=== PATIENT | female | born 1965 | race Caucasian/White ===

== ENCOUNTER 2021-05-10 12:44 | Outpatient (CLI) | payer OTHER, SELFPAY ==
--- NOTE | ~2021-05-10 | MMUS_ITS ---
EXAMINATION: MM diagnostic marc BI w froy, US breast RT limited HISTORY: Palpable lump under right arm. TECHNIQUE: Additional 3-D tomosynthesis images of the breasts were performed and synthetic 2-D images were generated. CAD analysis was submitted and interpreted. High resolution Limited right breast ult rasound was performed. COMPARISON: Comparison to multiple prior studies sequentially, with oldest reviewed study dated 01/10. BREAST PARENCHYMAL COMPOSITION: The breasts are heterogenously dense, which may obscure small masses. FINDINGS: MAMMOGRAPHIC FINDINGS: There are no suspicious masses, calcifications or architectural distortion in the right breast to sug gest malignancy. There are punctate calcifications in the outer aspect of the left breast posteriorly on CC view which are likely benign. Six-month follow-up diagnostic left mammogram is recommended. ULTRASOUND: Limited right breast ultrasound: In the area of palpable concern there is an irregular shaped hypoech oic mass with posterior enhancement measuring 1.7 x 1.0 cm. No other masses are identified. IMPRESSION: 1. Irregular shaped hypoechoic 1.7 cm right breast mass in the area of palpable concern. Ultrasound g uided right breast biopsy recommended. 2. Punctate grouped calcifications posterior lateral aspect of the left breast on CC view, likely yancy ign. Six-month follow-up diagnostic left mammogram recommended. BI-RADS category 4, suspicious findings. Reviewed, dictated and finalized at location A. IMPRESSION: 1. Irregular shaped hypoechoic 1.7 cm right breast mass in the area of palpable concern. Ultrasound guided right breast biopsy recommended. 2. Punctate grouped calcifications posterior lateral aspect of the left breast on CC view, likely benign. Six-month follow-up diagnostic left mammogram recomm ended. BI-RADS category 4, suspicious findings.
== END 2021-05-10 12:45 | disposition home or self-care (01) ==
PROVIDERS: PCP Family Medicine; Referring Provider Obstetrics & Gynecology; Visit Provider Family Medicine
DX: N63.31 Unspecified lump in axillary tail of the right breast (principal)
CPT/HCPCS: 76642; 77062; 77066; G0279

== ENCOUNTER → 2021-11-16 14:30 | Outpatient (CLI) | payer OTHER, SELFPAY ==
--- NOTE | ~2021-11-16 | XR_ITS ---
EXAMINATION: XR chest 2V DATE: 11/16/2021 14:47 INDICATION: Chronic cough. TECHNIQUE: Frontal and lateral views of the chest were obtained. COMPARISON: None. FINDINGS: The chest demonstrates clear lungs without pneumonia, pleural effusion, or pneumothorax. Th e heart size is normal. IMPRESSION: 1. No acute cardiopulmonary disease. Reviewed, dictated and finalized at location B.
== END ==
PROVIDERS: PCP Family Medicine; Visit Provider Family Medicine
DX: R05.3 Chronic cough (principal)
CPT/HCPCS: 71046

== ENCOUNTER 2023-07-12 03:35 | Day surgery (SDC) | payer BC, SELFPAY ==
[2023-05-21 14:48] VITALS: BMI 30.5
--- NOTE | 2023-06-27 09:47 | PC.NURSE ---
Pt was rescheduled from 05/31/23 to 07/12/23. PAT call was completed on 05/21/23. Pt states no changes in health history or medications since then. Aware of new date and time, 07/12/23 at 0700/0830. No questions. Verbalizes understanding.
--- NOTE | 2023-07-10 12:06 | SUR.PREOP ---
Patient called regarding upcoming procedure. Reviewed preop instructions, appointment times, and procedure prep.
[2023-07-12 07:30] VITALS: BP 122/81; PULSE 88; RESP 18; TEMP 35.8; O2SAT 99; BMI 30.4
[2023-07-12] MEDS: LACTATED RINGERS 1,000 ML 150 ML IV CONT (07:48)
--- NOTE | 2023-07-12 07:50 | WPDANESEPPF ---
Anes - Initial Pre Proc Eval Procedure: Operation Date: 07/12/23 08:30 Proposed Procedures p Colonoscopy - Leonard Osorio MD Date/Time: 07/12/23 07:50 Surgeon: Leonard Osorio MD Pre Op Diagnosis: other fecal abnormalities Patient Data Age: 57 Gender: F Height: 1.68 m Weight: 85.5 kg Last Vital Signs Temp 35.8 C L 07/12/23 07:30 Pulse 88 07/12/23 07:30 Resp 18 07/12/23 07:30 BP 122/81 07/12/23 07:30 Pulse Ox 99 07/12/23 07:30 O2 Del Method Room Air 07/12/23 07:30 Allergies Allergy/AdvReac Type Severity Reaction Status Date / Time codeine Allergy Unknown Nausea Verified 07/12/23 07:37 Home Medications Medication Instructions Recorded Confirmed Type levocetirizine 5 mg tablet (Xyzal) 5 mg PO DAILY 10/17/22 07/12/23 History venlafaxine 37.5 mg 37.5 mg PO DAILY #90 caps 11/19/22 07/12/23 Rx capsule,extended release 24 hr (Effexor XR) ergocalciferol (vitamin D2) 1,250 1,250 mcg PO WEEKLY #12 caps 04/18/23 07/12/23 Rx mcg (50,000 unit) capsule amoxicillin 875 mg tablet 875 mg PO Q12H #20 tabs 07/08/23 07/12/23 Rx Patient hx anesthesia problems: none Family hx anesthesia problems: none Results Review: All pre-operative results and documents have been reviewed as part of the pre-operative evaluation. [facility] Past Medical History Medical History Acute non-recurrent maxillary sinusitis Altered bowel habits BMI 33.0-33.9,adult Colon cancer screening COVID (10/13/21) Depression Elevated fasting glucose Hematuria Hyperlipidemia Mass of right breast (~05/10/21) 1.7 x 1.0 cm irregular hypoechoic mass with enhancement on ultrasound 05/10/2021 with need for biopsy Menopausal symptoms Obesity (BMI 35.0-39.9 without comorbidity) Pharyngitis Post-COVID chronic cough (~03/18/22) chest x-ray 11/16/2021 normal. Vitamin D deficiency Family History Family History Mother Hypertension Family history of rheumatoid arthritis Patient's mother is , Onset Age: 80 Father Patient's father is , Onset Age: 89 Family history of malignant neoplasm Grandparent Acute myocardial infarction, Onset Age: 79 Cerebrovascular accident, Onset Age: 79 Family history of malignant neoplasm, Onset Age: 70 Other Family history of malignant neoplasm of breast Social History Social History Smoking status: Never smoker Alcohol intake: current Alcohol use details: Occasionally Substance use: never Substance use type: does not use Lack of Transportation: No Lack of Food: Never True Current Housing: I Have Housing Concerned About Future Housing: No Difficulty Paying Gas/Electric Bills: No Difficulty Paying for Meds: No Currently Unemployed: No Education: Master's Degree or Higher Difficulty w/ Childcare or Family Care: No Living arrangements: with family Anes - Eval Final PreProcedure Day of Procedure 07/12/23 07:50 Patient weight: obese Heart: regular rate and rhythm Lungs: clear to auscultation Airway: Mallampati scale class II Neurological: alert and oriented Last oral intake: >/= 8 hours ASA classification: II Emergent: no Anesthetic plan: proceed Anesthesia type and monitoring: general GIVS and standard monitoring Results Review: All pre-operative results and documents have been reviewed as part of the pre-operative evaluation. Informed Consent: The patient's anesthetic plan and its attendant risks and benefits were discussed with the patient/family/POA. Questions were solicited and answers provided to the satisfaction of the patient/family/POA.
--- NOTE | 2023-07-12 08:17 | PM.HPGS ---
History of Present Illness History of Present Illness Consent: Risks, benefits, and alternatives have been discussed and questions answered. Patient agrees to proceed with procedure. Chief complaint: other fecal abnormalities Narrative: Nicolasa Worthington is a 57 year old female here for first colonoscopy, had + cologuard Review of Systems Constitutional: Constitutional: Denies headache(s) and Denies weakness Eyes: Eyes: Denies blurry vision ENT: Reports Normal hearing present, Denies headache(s) and Denies neck pain Cardiovascular: Cardiovascular: Denies chest pain and Denies dyspnea Respiratory: Respiratory: Denies dyspnea Gastrointestinal: Gastrointestinal: Reports no additional gastrointestinal complaints Genitourinary: Genitourinary: Denies dysuria Musculoskeletal: Musculoskeletal: Denies neck pain Integumentary/Breasts: Skin/Breast: Denies dry skin Neurologic: Reports Normal hearing present, Denies headache(s) and Denies weakness Psychiatric: Psychiatric: Denies anxiety Endocrine: Endocrine: Denies change in body appearance Hematologic/Lymphatic: Hematologic/Lymphatic: Denies easy bleeding Allergic/Immunologic: Allergic/Immunologic: Denies urticaria PMFSH Past Medical History Medical History (Updated 07/12/23 @ 08:17 by Leonard Osorio MD) Acute non-recurrent maxillary sinusitis Altered bowel habits BMI 33.0-33.9,adult Colon cancer screening COVID (10/13/21) Depression Elevated fasting glucose Hematuria Hyperlipidemia Mass of right breast (~05/10/21) 1.7 x 1.0 cm irregular hypoechoic mass with enhancement on ultrasound 05/10/2021 with need for biopsy Menopausal symptoms Obesity (BMI 35.0-39.9 without comorbidity) Pharyngitis Positive colorectal cancer screening using Cologuard test Post-COVID chronic cough (~10/13/21) chest x-ray 11/16/2021 normal. Vitamin D deficiency Family History Family History Mother Hypertension Family history of rheumatoid arthritis Patient's mother is , Onset Age: 80 Father Patient's father is , Onset Age: 89 Family history of malignant neoplasm Grandparent Acute myocardial infarction, Onset Age: 79 Cerebrovascular accident, Onset Age: 79 Family history of malignant neoplasm, Onset Age: 70 Other Family history of malignant neoplasm of breast Social History Social History Smoking status: Never smoker Alcohol intake: current Alcohol use details: Occasionally Substance use: never Substance use type: does not use Lack of Transportation: No Lack of Food: Never True Current Housing: I Have Housing Concerned About Future Housing: No Difficulty Paying Gas/Electric Bills: No Difficulty Paying for Meds: No Currently Unemployed: No Education: Master's Degree or Higher Difficulty w/ Childcare or Family Care: No Living arrangements: with family Meds Home Medications and Allergies Home Medications Medication Instructions Recorded Confirmed Type levocetirizine 5 mg tablet (Xyzal) 5 mg PO DAILY 10/17/22 07/12/23 History venlafaxine 37.5 mg 37.5 mg PO DAILY #90 caps 11/19/22 07/12/23 Rx capsule,extended release 24 hr (Effexor XR) ergocalciferol (vitamin D2) 1,250 1,250 mcg PO WEEKLY #12 caps 04/18/23 07/12/23 Rx mcg (50,000 unit) capsule amoxicillin 875 mg tablet 875 mg PO Q12H #20 tabs 07/08/23 07/12/23 Rx Allergies Allergy/AdvReac Type Severity Reaction Status Date / Time codeine Allergy Unknown Nausea Verified 07/12/23 07:37 Vital Signs Vital Signs - 24 hr 07/12/23 07:30 Temperature 96.5 F L Pulse Rate 88 Respiratory Rate 18 Blood Pressure 122/81 Pulse Oximetry 99 Oxygen Delivery Room Air Exam Const: General: comfortable and no acute distress HENMT: Face/Nose/Sinus: Normal nares present Eyes: General: appearance normal, [place]
[2023-07-12 08:37] VITALS: BP 99/69; PULSE 83; RESP 24; O2SAT 95
[2023-07-12 08:47] VITALS: BP 104/68; PULSE 76; RESP 12; O2SAT 95
[2023-07-12 08:57] VITALS: BP 114/74; PULSE 73; RESP 24; O2SAT 99
== END 2023-07-12 09:03 | disposition home or self-care (01) ==
PROVIDERS: PCP Nurse Practitioner Family; Visit Provider Internal Medicine Gastroenterology
PROC: 0DJD8ZZ Inspection of Lower Intestinal Tract, Via Natural or Artificial Opening Endoscopic (ICD-10-PCS; CPT 45378; principal; 2023-07-12 08:30)
DX: K57.30 Diverticulosis of large intestine without perforation or abscess without bleeding (principal); D12.5 Benign neoplasm of sigmoid colon; K64.8 Other hemorrhoids; F32.A Depression, unspecified; E55.9 Vitamin D deficiency, unspecified; E66.9 Obesity, unspecified; Z68.30 Body mass index [BMI] 30.0-30.9, adult
CPT/HCPCS: 45385; 88305; J2001; J2704; J7120

== ENCOUNTER 2023-08-22 13:24 | Emergency (ER) | payer BC, SELFPAY ==
[2023-08-22 13:39] VITALS: BP 114/84; PULSE 64; RESP 16; TEMP 36.2; O2SAT 98
--- NOTE | 2023-08-22 13:44 | PC.NURSE ---
[id number] Patient left after triage as she reported she had an order for xray and needed only to be seen in imaging department. Not seen by provider.
== END 2023-08-22 13:44 | disposition left against medical advice (07) ==
LOC: EXPGOSH 13:26
PROVIDERS: Emergency Provider Nurse Practitioner; PCP Nurse Practitioner Family
DX: M79.645 Pain in left finger(s) (principal)
CPT/HCPCS: 99199

== ENCOUNTER → 2023-08-22 13:42 | Outpatient (CLI) | payer BC, SELFPAY ==
--- NOTE | ~2023-08-22 | XR_ITS ---
EXAMINATION: XR hand LT min 3V DATE: 08/22/2023 14:10 INDICATION: Left hand pain. TECHNIQUE: 3 views of left hand were obtained. COMPARISON: None. FINDINGS: Bone alignment is normal. No fracture. There is mild osteoarthritis of first carpometacarpa l joint and most of the metacarpophalangeal joints and interphalangeal joints. IMPRESSION: 1. Mild polyarticular osteoarthritis. Reviewed, dictated and finalized at location E. CAL OFFICE MANAGER
--- NOTE | ~2023-08-22 | XR_ITS ---
EXAMINATION: XR wrist LT min 3V DATE: 08/22/2023 14:10 INDICATION: Left wrist pain. TECHNIQUE: 4 views of left wrist were obtained. COMPARISON: None. FINDINGS: There is volar tilt of lunate, consistent with volar intercalated segmental instability. No fracture. There is mild osteoarthritis of first carpometacarpal joint and triscaphe joint. IMPRESSION: 1. Mild polyarticular osteoarthritis. 2. Volar intercalated segmental instability (VISI). Reviewed, dictated and finalized at location E. ER HARVESTER OPERATOR
== END ==
PROVIDERS: PCP Family Medicine; Visit Provider Family Medicine
DX: M19.032 Primary osteoarthritis, left wrist (principal); M19.042 Primary osteoarthritis, left hand; M25.332 Other instability, left wrist
CPT/HCPCS: 73110; 73130

== ENCOUNTER 2024-07-20 16:33 | Emergency (ER) | payer BC, SELFPAY ==
[2024-07-20 16:42] VITALS: BP 129/88; PULSE 72; RESP 16; TEMP 36; O2SAT 98
--- NOTE | 2024-07-20 16:44 | ED.HEATRA ---
HPI - Head Injury General Chief complaint: Head Injury Stated complaint: HEAD INJURY Time Seen by Provider: 07/20/24 16:48 Mode of arrival: ambulatory Limitations: no limitations History of Present Illness HPI Narrative: 58-year-old female presents concern for head injury. Reports about an hour ago she tripped in her driveway and fell and hit her head on the concrete. She reports headache, large raised area on her forehead. She denies vomiting, vision changes. She is not on blood thinners. Her reports she seems unsteady on her feet Complaint: head injury Related Data Allergies Allergy/AdvReac Type Severity Reaction Status Date / Time codeine Allergy Unknown Nausea Verified 10/21/23 08:06 Review of Systems Review of Systems: CONSTITUTIONAL: Denies chills, sweats, or fever. EYES: Denies visual changes CARDIOVASCULAR: Denies chest pain GASTROINTESTINAL: Denies nausea, vomiting SKIN: Reports raised bruised area on her forehead MUSCULOSKELETAL: Denies musculoskeletal pain NEUROLOGIC: Denies numbness, weakness, or headache. All systems reviewed & are unremarkable except as noted in HPI and below [facility] Past Medical History Medical History (Updated 07/20/24 @ 17:05 by Dee Christensen NP) Chronic pain of left wrist (~05/2023) Chronic pain of left hand (~05/2023) Positive colorectal cancer screening using Cologuard test Acute non-recurrent maxillary sinusitis Colon cancer screening Altered bowel habits BMI 33.0-33.9,adult Vitamin D deficiency Menopausal symptoms COVID (10/13/21) Post-COVID chronic cough (~10/13/21) chest x-ray 11/16/2021 normal. Pharyngitis Hematuria Hyperlipidemia Elevated fasting glucose Depression Mass of right breast (~05/10/21) 1.7 x 1.0 cm irregular hypoechoic mass with enhancement on ultrasound 05/10/2021 with need for biopsy Obesity (BMI 35.0-39.9 without comorbidity) Family History Family History Mother Hypertension Family history of rheumatoid arthritis Patient's mother is , Onset Age: 80 Father Patient's father is , Onset Age: 89 Family history of malignant neoplasm Grandparent Acute myocardial infarction, Onset Age: 79 Cerebrovascular accident, Onset Age: 79 Family history of malignant neoplasm, Onset Age: 70 Other Family history of malignant neoplasm of breast Social History Social History Smoking status: Never smoker Alcohol intake: current Alcohol use details: Occasionally Substance use: never Substance use type: does not use Lack of Transportation: No Lack of Food: Never True Current Housing: I Have Housing Concerned About Future Housing: No Difficulty Paying Gas/Electric Bills: No Difficulty Paying for Meds: No Currently Unemployed: No Education: Master's Degree or Higher Difficulty w/ Childcare or Family Care: No Living arrangements: with family Comments At time of signature, agree with nursing past medical, surgical, social and family history. There is no relevant family history pertinent to the presenting complaint Exam Narrative: GENERAL: Nontoxic-appearing, well-nourished, and in no acute distress. HEAD: Normocephalic, atraumatic. EYES: PERRLA, sclera clear, and EOMI. No nystagmus. ENT: Nares clear, turbinates pink, no rhinorrhea or epistaxis. Mucous membranes moist. NECK: Supple. CHEST: No respiratory distress. Speaks in full sentences. HEART: Regular rate and rhythm. EXTREMITIES: Normal range of motion. No edema. Normal strength and sensation. SKIN: Warm, dry, no visible rash. NEURO: Alert and oriented x3. No focal deficits. Cranial nerves II through XII grossly intact PSYCH: Normal mood and affect Course Course Emergency Course: Patient is aware of, understands and agrees to be transferred to the emergency room. Anticipatory guidance given. Patient agrees to proceed directly to the emergency department. Portions of this record may have been created with voice recognition software Level of Care: Express Care Visit Vital Signs Vital signs: Vital Signs Temperature 96.8 F L 07/20/24 16:42 Pulse Rate 72 07/20/24 16:42 Respiratory Rate 16 07/20/24 16:42 Blood Pressure 129/88 07/20/24 16:42 Pulse Oximetry 98 07/20/24 16:42 Temperature 96.8 F L 07/20/24 16:42 Pulse Rate 72 07/20/24 16:42 Respiratory Rate 16 07/20/24 16:42 Blood Pressure 129/88 07/20/24 16:42 Pulse Oximetry 98 07/20/24 16:42 Reviewed. Transfer Transfered to: [facility] Transportation: Other (private vehicle) Transfer rationale: Head injury Accepting physician: Eduardo MDM - Head Injury MDM Narrative Medical decision making narrative: CCHR score: Signs of open or depressed skull fracture: No Rossi sign/raccoon eyes: No 2 or more episodes of vomiting: No Age 65 years +: No Amnesia for events occurring 30 minutes prior to trauma: No Dangerous mechanism of injury (pedestrian struck by motor vehicle, occupant ejected from motor vehicle, fall from >3 feet or >5 stairs): No Critical Care Time Critical Care Time Critical Care Time: No Discharge Plan Discharge Clinical Impression: Head injury Patient Disposition: Acute Care Hospital Condition: Stable Patient Language: Swedish Prescriptions: No Action ergocalciferol (vitamin D2) 1,250 mcg (50,000 unit) capsule 1,250 mcg PO WEEKLY Qty: 12 3RF venlafaxine [Effexor XR] 37.5 mg capsule,extended release 24hr 37.5 mg PO DAILY Qty: 90 3RF Follow-up/Referrals: Vince Hopson MD [Primary Care Provider] - Time of Disposition: 17:05
== END 2024-07-20 17:00 | disposition short-term general hospital (02) ==
PROVIDERS: Emergency Provider Nurse Practitioner; PCP Family Medicine
DX: S09.90XA Unspecified injury of head, initial encounter (principal); W01.0XXA Fall on same level from slipping, tripping and stumbling without subsequent striking against object, initial encounter
CPT/HCPCS: 99213; G0463

== ENCOUNTER 2024-07-20 17:23 | Emergency (ER) | payer BC, SELFPAY ==
--- NOTE | ~2024-07-20 | CT_ITS ---
EXAMINATION: CT facial & cervical spine wo DATE: 07/20/2024 17:50 INDICATION: head injury, facial injury TECHNIQUE: Computed tomography (CT) of the maxillofacial region and cervical spine was performed with out intravenous contrast. Automated exposure control and iterative reconstruction technique were empl oyed. The dose-length product was 474.21 mGy-cm. COMPARISON: None FINDINGS: CERVICAL: Vertebral Body Alignment: Trace anterolisthesis at C3-4, presumably secondary to degenerative changes . Craniocervical and atlantoaxial alignment: Mild degenerative change. Alignment intact. Osseous structures/fracture: No evidence of a lytic or blastic process in the visualized spine. No e vidence of acute fracture. Cervical soft tissues: The paraspinal soft tissues planes are maintained. Degenerative changes: Degenerative changes, without severe neural foraminal or central canal narrowin g. FACE: Soft Tissues: Large left frontal hematoma. Facial bones: No acute fracture. No lytic or blastic process. Eyes: The globes are intact. The soft tissue planes of the orbits are maintained. Paranasal Sinuses: Bilateral maxillary and ethmoid mucosal thickening, the remaining aerated spaces are clear. Foreign Bodies: No radiopaque foreign bodies. Other Findings: 1.8 cm right thyroid nodule. IMPRESSION: No acute fracture or traumatic malalignment in the cervical spine. No acute facial bone fracture. 1.8 cm right thyroid nodule, recommend nonemergent, outpatient thyroid ultrasound for further charact erization. Reviewed, dictated and finalized at location K. WINDER IMPRESSION: No acute fracture or traumatic malalignment in the cervical spine. No acute fac ial bone fracture. 1.8 cm right thyroid nodule, recommend nonemergent, outpatient thyroid ultrasou nd for further characterization.
--- NOTE | ~2024-07-20 | CT_ITS ---
EXAMINATION: CT brain wo con DATE: 07/20/2024 17:50 INDICATION: head injury . TECHNIQUE: Computed tomography (CT) of the head was performed without intravenous contrast. The mA wa s adjusted according to patient size. Iterative reconstruction technique was employed. The dose-lengt h product was 1059.33 mGy-cm. COMPARISON: 11/29/2005. FINDINGS: No acute intracranial hemorrhage or extra-axial fluid collection. No hydrocephalus, mass, or herniation. No acute ischemic infarct. Unremarkable dural venous sinus attenuation. No acute osseous abnormality. Large left frontal hematoma. The aerated spaces are clear. Mild intracranial arterial calcification. IMPRESSION: No acute intracranial process. Reviewed, dictated and finalized at location K. K MANAGER
[2024-07-20 17:26] VITALS: BP 144/80; PULSE 79; RESP 18; TEMP 36.4; O2SAT 97
--- NOTE | 2024-07-20 17:27 | ED_ITS ---
HPI - Head Injury General Chief complaint: Head Injury Stated complaint: HI Time Seen by Provider: 07/20/24 17:25 Focused HPI: Patient is a 58-year-old female who presents to the ER after tripping in her driveway and falling. She reports she hit her left forehead on the cement. Patient denies loss of consciousness and being on a blood thinner. She denies vomiting but endorses slight nausea and feeling dazed. Patient reports she went to urgent care and they advised her to come to the ER for evaluation and takes scans. She endorses significant pain she coughs after the cement on left forehead. Patient denies any one-sided /tingling/ numbness. She denies any medical history related to this ER visit. GENERAL: Well-appearing, well-nourished, and in no acute distress. HEAD: Normocephalic, atraumatic. CHEST: Clear to auscultation. ?No respiratory distress. HEART: Regular rate and rhythm.? NEURO: ?Alert and oriented x3. Patient screened in triage and initial orders placed.? ?Additional care and disposition to be based upon?diagnostic testing and treatment. Related Data Allergies Allergy/AdvReac Type Severity Reaction Status Date / Time codeine Allergy Unknown Nausea Verified 10/21/23 08:06 [facility] Past Medical History Medical History (Updated 07/20/24 @ 17:05 by Dee Christensen NP) Chronic pain of left wrist (~05/2023) Chronic pain of left hand (~05/2023) Positive colorectal cancer screening using Cologuard test Acute non-recurrent maxillary sinusitis Colon cancer screening Altered bowel habits BMI 33.0-33.9,adult Vitamin D deficiency Menopausal symptoms COVID (10/13/21) Post-COVID chronic cough (~10/13/21) chest x-ray 11/16/2021 normal. Pharyngitis Hematuria Hyperlipidemia Elevated fasting glucose Depression Mass of right breast (~05/10/21) 1.7 x 1.0 cm irregular hypoechoic mass with enhancement on ultrasound 05/10/2021 with need for biopsy Obesity (BMI 35.0-39.9 without comorbidity) Family History Family History Mother Hypertension Family history of rheumatoid arthritis Patient's mother is , Onset Age: 80 Father Patient's father is , Onset Age: 89 Family history of malignant neoplasm Grandparent Acute myocardial infarction, Onset Age: 79 Cerebrovascular accident, Onset Age: 79 Family history of malignant neoplasm, Onset Age: 70 Other Family history of malignant neoplasm of breast Social History Social History Smoking status: Never smoker Alcohol intake: current Alcohol use details: Occasionally Substance use: never Substance use type: does not use Lack of Transportation: No Lack of Food: Never True Current Housing: I Have Housing Concerned About Future Housing: No Difficulty Paying Gas/Electric Bills: No Difficulty Paying for Meds: No Currently Unemployed: No Education: Master's Degree or Higher Difficulty w/ Childcare or Family Care: No Living arrangements: with family Discharge Plan Discharge Patient Language: Frisian Prescriptions: No Action ergocalciferol (vitamin D2) 1,250 mcg (50,000 unit) capsule 1,250 mcg PO WEEKLY Qty: 12 3RF venlafaxine [Effexor XR] 37.5 mg capsule,extended release 24hr 37.5 mg PO DAILY Qty: 90 3RF Follow-up/Referrals: Vince Hopson MD [Primary Care Provider] -
== END 2024-07-20 20:15 | disposition left against medical advice (07) ==
LOC: ANHED 21:50
PROVIDERS: Emergency Provider Registered Nurse; PCP Family Medicine
DX: S06.0X0A Concussion without loss of consciousness, initial encounter (principal); E55.9 Vitamin D deficiency, unspecified; E78.5 Hyperlipidemia, unspecified; E66.9 Obesity, unspecified; Z68.33 Body mass index [BMI] 33.0-33.9, adult; W18.30XA Fall on same level, unspecified, initial encounter
CPT/HCPCS: 70450; 70486; 72125; 99284

== ENCOUNTER 2025-02-07 12:13 | Outpatient (CLI) | payer BC, SELFPAY ==
--- NOTE | ~2025-02-07 | XR_ITS ---
Lumbosacral Spine: AP, oblique, and lateral views Clinical History: Pain Findings: The normal lordotic curve is maintained. The vertebral bodies and posterior elements are i ntact. There is moderate degenerative disc narrowing at L2-L3 at L3-L4. There is moderate facet arthr opathy at the lower lumbar spine. The sacroiliac joints are normally outlined. Impression: Degenerative spondylosis, as detailed above. Reviewed, dictated and finalized at location M. Impression: Degenerative spondylosis, as detailed above.
--- OUTSIDE RECORDS SUMMARY | 2025-02-07 12:21 | XMS_ITS | Patient Health Record ---
Author Organization [facility] jamie Address [address] [place], [place] [id number] Care Team Providers Care Supervisor Drying And Winding Name Role Phone Heladio Lee [phone] ALLERGIES Allergen (clinical drug ingredient) Drug/Non Drug Allergy documented on EMR Reaction Allergy Type Onset Date Status acetaminophen Tylenol severe nausea Drug Allergy Active REASON FOR REFERRAL No Information MEDICATIONS Medication SIG (Take, Route, Fr equency, Duration) Notes Start Date End Date Status meloxicam 15 mg 1 tab(s) orally once a day for 30 Active SOCIAL HISTORY Tobacco Use: Social History Observation Description Date Details (start date - stop date) Never Smoker NA - NA Sex Assigned At : Social History Observation Description Sex Assigned At Unknown Tobacco Use: Question Answer Notes Smoking Status nonsmoker PROBLEMS Problem Type ICD Code Onset Dates Problem Status W/U Status Risk SNOMED Code Notes Problem Polyarthralgia (719.49) Active confirmed Polyarthralgia (22120461) Problem Myalgia (729.1) Active confirmed Myalgi a (06370805) Problem Low Back Pain (724.2) Active confirmed Low back pain (728604318) Problem Polyarthralgia (M25.50) Active confirmed 44694570 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
--- OUTSIDE RECORDS SUMMARY | 2025-02-07 12:21 | XMS_ITS | Clinical Summary ---
Author Organization [facility] Address [address] [place] [phone] Care Team Providers Care Chairman Name Role Phone Vince Hopson MD Primary Care Provider [phone] Allergies Active Allergy Reactions Criticality Noted Date Comments Acetaminophen Nausea & Vomiting Low 02/01/2015 Medications venlafaxine XR (EFFEXOR-XR) 37.5 mg 24 hr capsule Take 37.5 mg by mouth daily 05/17/2021 Active Active Problems Problem Noted Date Diagnosed Date Abnormal findings on diagnostic imaging of breas t 06/07/2021 Surgical History Surgery Date Site/Laterality Comments THYROID SURGERY 07/29/2017 - 07/28/2018 SECTION 07/29/1997 - 07/28/1998 BREAST BIOPSY 06/19/2021 Right Medical History Medical History Date Comments Depression Thyroid disease Arthritis Family History Medical History Relation Name Comments Lung cancer Father Relation Name Status Comments Father Social History Tobacco Use Types Packs/Day Years Used Date Smoking Tobacco: Never Assessed Comments Unknown Sex and Gender Information Value Date Recorded Sex Assigned at Not on file Legal Sex Female 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 SPECIALIST Gender Identity Not on file Sexual Orientation Not on file Obstetrics History Last Filed Vital Signs Vital Sign Reading Time Taken Comments Blood Pressure - - Pulse - - Temperature - - Respiratory Rate - - Oxygen Saturation - - Inhaled Oxygen Concentration - - Weight 95.3 kg (210 lb) 06/07/2021 11:48 AM POLYMER SPECIALIST Height 167.6 cm (5' 6) 06/07/2021 11:48 AM POLYMER SPECIALIST Body Mass Index 33.89 06/07/2021 11:48 AM POLYMER SPECIALIST Plan of Treatment Not on file Insurance Care Teams Chairman Relationship Specialty Start Date End Date Vince Hopson MD [address] [address] PCP - General Family Medicine 05/12/21
--- OUTSIDE RECORDS SUMMARY | 2025-02-07 12:21 | XMS_ITS | Referral Summary ---
Author Organization [facility] Address [facility] [place] [address] Care Team Providers Care Electron Beam Machine Welder Setter Name Role Phone Vince Hopson MD Primary Care Provider [phone] Allergies Active Allergy Reactions Criticality Noted Date Comments Acetaminophen Nausea & Vomiting Low 02/01/2015 Medications venlafaxine XR (EFFEXOR-XR) 37.5 mg 24 hr capsule Take 37.5 mg by mouth daily 05/17/2021 Active Active Problems Problem Noted Date Diagnosed Date Abnormal findings on diagnostic imaging of breas t 06/07/2021 Social History Tobacco Use Types Packs/Day Years Used Date Smoking Tobacco: Never Assessed Comments Unknown Sex and Gender Information Value Date Recorded Sex Assigned at Not on file Legal 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 Gender Identity Not on file Sexual Orientation Not on file Last Filed Vital Signs Vital Sign Reading Time Taken Comments Blood Pressure - - Pulse - - Temperature - - Respiratory Rate - - Oxygen Saturation - - Inhaled Oxygen Concentration - - Weight 95.3 kg (210 lb) 06/07/2021 11:48 AM TOP COLLAR BASTER Height 167.6 cm (5' 6) 06/07/2021 11:48 AM TOP COLLAR BASTER Body Mass Index 33.89 06/07/2021 11:48 AM TOP COLLAR BASTER Plan of Treatment Not on file Insurance [facility] CHOICE PLUS Care Teams Electron Beam Machine Welder Setter Relationship Specialty Start Date End Date Vince Hopson MD [address] [id number] PCP - General Family Medicine 05/12/21
--- OUTSIDE RECORDS SUMMARY | 2025-02-07 12:21 | XMS_ITS | Clinical Summary ---
Author Organization [facility] Address [address] [place] [phone] Phone Care Team Providers Care Panel Saw Operator Name Role Phone Unavailable Primary Care Provider Unavailabl e Social History Tobacco Use Types Packs/Day Years Used Date Smoking Tobacco: Never Assessed Comments Unknown Sex and Gender Information Value Date Recorded Sex Assigned at Not on file Legal Sex Female 9:46 AM CDT Gender Identity Not on file Sexual Orientation Not on file Plan of Treatment Health Maintenance Due Date Last Done Comments DTAP/TDAP/TD VACCINES (1 - Tdap) 12/04/1986 HEPATITIS B VACCINES (1 of 3 - 19+ 3-dose series) 03/1987 HPV/Cotest (21-29) 12/04/1988 CERVICAL CANCER SCREENING 12/04/1997 HPV/Cotest (30-65) 12/04/1997 PAP SMEAR 12/04/1997 BREAST CANCER SCREENING 2007 COLORECTAL SCREENING 12/04/2012 Colorectal Cancer Screening 12/04/2012 FIT-DNA Q 3 years 12/04/2012 FIT/FOBT Q 1 year 12/04/2012 Flex Sig/CT Colonography Q 5 years 12/04/2012 ZOSTER VACCINE (1 of 2) 12/04/2017 INFLUENZA VACCINE (#1) 2025 Insurance BCBS BLUE ACCESS/TRUE BLUE PPO [facility]
== END 2025-02-07 12:14 | disposition home or self-care (01) ==
PROVIDERS: PCP Family Medicine; Visit Provider Nurse Practitioner Family
DX: M47.816 Spondylosis without myelopathy or radiculopathy, lumbar region (principal)
CPT/HCPCS: 72110

== ENCOUNTER 2025-03-15 09:22 | Outpatient (CLI) | payer BC, SELFPAY ==
--- NOTE | ~2025-03-15 | XR_ITS ---
EXAM/ PROCEDURE: XR hip LT min 2V - 03/15/2025 9:32 CDT HISTORY: 59 years old Female with PT C/O CHRONIC LT HIP PAIN WORSEN PAST 2 MONTHS COMPARISON: None available TECHNIQUE: Three view(s) FINDINGS/ IMPRESSION: There are no fractures or dislocations.Joint space narrowing, subchondral sclerosis, subchondral cyst formation and osteophyte formation, compatible with mild osteoarthritis. Reviewed, dictated and finalized at location A.
--- OUTSIDE RECORDS SUMMARY | 2025-03-15 10:07 | XMS_ITS | Clinical Summary ---
Author Organization [facility] Address [address] [place] [phone] Care Team Providers Care Application Infrastructure Engineer Name Role Phone Vince Hopson MD Primary Care Provider [phone] Allergies Active Allergy Reactions Criticality Noted Date [...] on file Legal Sex Female 9:09 AM INCENDIARIES SUPERVISOR Gender Identity Not on file Sexual Orientation Not on file Obstetrics History Last Filed Vital Signs Vital Sign Reading Time Taken Comments Blood Pressure - - Pulse - - Temperature - - Respiratory Rate - - Oxygen Saturation - - Inhaled Oxygen Concentration - - Weight 95.3 kg (210 lb) 06/07/2021 11:48 AM INCENDIARIES SUPERVISOR Height 167.6 cm (5' 6) 06/07/2021 11:48 AM INCENDIARIES SUPERVISOR Body Mass Index 33.89 06/07/2021 11:48 AM INCENDIARIES SUPERVISOR Plan of Treatment Not on file Insurance Care Teams Application Infrastructure Engineer Relationship Specialty Start Date End Date Vince Hopson MD [address] [address] PCP - General Family Medicine 05/12/21
--- OUTSIDE RECORDS SUMMARY | 2025-03-15 10:07 | XMS_ITS | Patient Health Record ---
Author Organization [facility] jamie Address 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
--- OUTSIDE RECORDS SUMMARY | 2025-03-15 10:07 | XMS_ITS | Clinical Summary ---
Author Organization [facility] Address [address] [place] [phone] Phone Care Team Providers Care Body Service Team Member Name Role Phone Unavailable Primary Care Provider [...] 2025 Insurance BCBS BLUE ACCESS/TRUE BLUE PPO [facility]
== END 2025-03-15 09:23 | disposition home or self-care (01) ==
PROVIDERS: PCP Nurse Practitioner Family; Visit Provider Nurse Practitioner Family
DX: M54.50 Low back pain, unspecified (principal); M79.605 Pain in left leg
CPT/HCPCS: 73502